=== PATIENT | female | born 1960 | race Caucasian/White ===

== ENCOUNTER → 2017-03-27 | Outpatient (CLI) | payer OTHER ==
--- NOTE | 2017-03-27 21:09 | Diagnostic Imaging Report ---
Bilateral screening mammogram 2D views with tomosynthesis. The current study was also evaluated with a Computer Aided Detection (CAD) system. INDICATION: Screening. No current complaints stated on the questionnaire. COMPARISON: 04/21/2015. FINDINGS: The breasts are composed of heterogeneously dense parenchyma which may decrease mammographic sensitivity. There is no mass, architectural distortion, or suspicious cluster of calcifications. Occasional punctate calcifications are seen. Allowing for technique and positional differences, no suspicious change is seen. IMPRESSION: Dense breasts with no definite change. ACR BI-RADS Category 2: Benign findings. Result letter will be mailed to the patient. Note: At least 10% of breast cancer is not imaged by mammography. Dictated by: Dictated on workstation # [id number]
== END ==
LOC: RAD 11:04
PROVIDERS: ATTEND Family Medicine
DX: Z12.31 Encounter for screening mammogram for malignant neoplasm of breast (principal)
CPT/HCPCS: 77067

== ENCOUNTER 2017-06-14 11:24 | Outpatient (CLI) | payer OTHER ==
[~2017-06-14] VITALS: Ht 160 cm; Wt 53.5 kg
== END 2017-06-14 12:06 ==
LOC: PREOP 11:24
PROVIDERS: ATTEND Internal Medicine
DX: Z01.818 Encounter for other preprocedural examination (principal); Z12.11 Encounter for screening for malignant neoplasm of colon

== ENCOUNTER 2017-06-15 08:02 | Day surgery (SDC) | payer OTHER ==
[2017-06-15 08:15] VITALS: BP 123/82
[2017-06-15] MEDS ORDERED: 1/2 NS IV SOLUTION 1,000 ML IV PRN (08:15)
[2017-06-15] MEDS ORDERED: LIDOCAINE JELLY 2% (XYLOCAINE) 5 ML TUBE MM PRN (08:15)
[2017-06-15] MEDS ORDERED: 1/2 NS IV SOLUTION 1,000 ML IV ONE (08:28)
--- NOTE | 2017-06-15 08:33 | Pre-Op Note & Conscious Sedat ---
Pre-Operative Progress Note H&P Reviewed The H&P was reviewed, patient examined and no changes noted. Date H&P Reviewed: Jun 15, 2017 Time H&P Reviewed: 08:32 Conscious Sedation Pre-Proced ASA Class: 1 Airway Mallampati Classification: (venetie appropriate class) I. II. III, IV Lungs Heart ASA score ASA 1: a normal healthy patient ASA 2: a patient with a mild systemic disease (mid diabetes, controlled hypertension, obesity ASA 3: a patient with a severe systemic disease that limits activity (angina , COPD, prior Myocardial infarction) ASA 4: a patient with an incapacitating disease that is a constant threat to life (CHF, renal failure) ASA 5: a moribund patient not expected to survive 24 hrs. (ruptured aneurysm) ASA 6: a declared brain patient whose organs are being harvested. For emergent operations, add the letter E after the classification Grade 2 Sedation Plan: Analgesia, Amnesia, Plan communicated to team members, Discussed options with patient/fam, Discussed risks with patient/fam Note The patient is an appropriate candidate to undergo the planned procedure, sedation, and anesthesia. The patient immediately re-assessed prior to indication. DAVON RICHARDS MD Jun 15, 2017 08:33
[2017-06-15] MEDS ORDERED: fentaNYL INJECTION 100 MCG/2 ML AMP ONE (09:12)
[2017-06-15] MEDS ORDERED: MIDAZOLAM 2 MG/2 ML (VERSED) VIAL ONE ×3 (09:12→09:28)
[2017-06-15] MEDS ORDERED: LIDOCAINE JELLY 2% (XYLOCAINE) 5 ML TUBE ONE (09:12)
--- NOTE | 2017-06-15 09:19 | History & Physical-Hospitalist ---
HPI History of Present Illness: HPI/Chief Complaint Mrs. Ruby is a 56-year-old white female refered by Dr. Wilde for screening colonoscopy. She is deemed to be of average risk as she is not aware of any family history of colon cancer or polyps. She had an episode of bright red bblood 10 years ago and underwent diagnostic colonoscopy reporting no evidence for neoplasia. Date Seen 06/15/17 Time Seen by Provider: 09:00 Attending Physician Alban Richards MD PCP Cristin Wilde DO Referring Physician Date of Admission Home Medications & Allergies Home Medications Reviewed patient Home Medication Reconciliation Form Allergies Allergies Coded Allergies No Known Drug Allergies (Unverified06/14/17) Past Wiudrwd-Phmtcl-Rrbfnh Hx Patient Social History Alcohol Use: Occasionally Uses Recreational Drug Use: No Smoking Status: Never a Smoker Recent Foreign Travel: No Contact w/other who traveled: No Recent Hopitalizations: No Recent Infectious Disease Expo: No Immunizations Up To Date Date of Influenza Vaccine: Apr 11, 2017 Seasonal Allergies Seasonal Allergies: No Cancer Skin Review of Systems Constitutional: no symptoms reported Cardiovascular: no symptoms reported, see HPI, No chest pain, No edema, No Hx of Intervention, No palpitations, No syncope, No vascular heart diseas Gastrointestinal: No RUQ, No LUQ, No RLQ, No LLQ, no symptoms reported, see HPI , No abdominal pain, No constipation, No diarrhea, No dysphagia, No hematemesis , No heartburn, No jaundice, No loss of appetite, No melena, No nausea, No vomiting Physical Exam Physical Exam Vital Signs Vital Sign - Last 12Hours 06/15/17 08:15 Temp 97.5 Pulse 79 Resp 18 B/P (MAP) 123/82 (96) Pulse Ox 95 O2 Delivery Room Air Capillary Refill : General Appearance: No Apparent Distress, WD/WN Respiratory: Chest Non Tender, Lungs Clear, Normal Breath Sounds, No Accessory Muscle Use, No Respiratory Distress Cardiovascular: Regular Rate, Rhythm, No Edema, No Gallop, No JVD, No Murmur, Normal Peripheral Pulses Gastrointestinal: Normal Bowel Sounds, No Organomegaly, No Pulsatile Mass, Non Tender, Soft Rectal: Deferred Extremity: Normal Inspection, Normal Range of Motion, Non Tender, No Calf Tenderness, No Pedal Edema Assessment/Plan Admission Diagnosis 1. Patient set up for screening colonoscopy on 15 June. Prep instructions given. Electronic medical record review 45 minutes of my direct care time was spent with another 15 minutes of staff time. ALBAN RICHARDS MD Jun 15, 2017 09:19
[2017-06-15] MEDS: fentaNYL INJECTION 100 MCG/2 ML AMP IVP PRN ×2 (09:21→09:24)
[2017-06-15] MEDS: MIDAZOLAM 2 MG/2 ML (VERSED) VIAL IVP PRN ×2 (09:22→09:28)
[2017-06-15 10:10] VITALS: BP 110/63
[2017-06-15 10:30] VITALS: BP 89/75
--- NOTE | 2017-06-15 13:25 | OPERATIVE REPORT ---
DATE OF SERVICE: COLONOSCOPY SUMMARY REFERRING PHYSICIAN Cristin Wilde D.O. INDICATION FOR THE PROCEDURE: Screening colonoscopy. The patient was placed in the left lateral decubitus position. Prior to undergoing colonoscopy digital rectal evaluation was performed. Anal sphincter tone was normal and the perianal reflexes intact. No abnormalities, no additional visual inspection of anal canal or distal rectal vault. The colonoscope was then inserted into the rectum and under direct visualization advanced to the cecum. The cecum was identified by identification of the ileocecal valve cecal strap. Photographic documentation was obtained. Careful inspection was made as the colonoscope was withdrawn. FINDINGS: There was no evidence for internal or external hemorrhoids and the rectum was unremarkable. Mild diverticular disease confined to the sigmoid colon was present without evidence for diverticulitis. One diminutive hyperplastic-appearing polyp was noted at 30 cm from the anal verge in the mid sigmoid colon. It was biopsied and ablated and submitted for histopathology with no blood loss. The descending colon, splenic flexure, transverse colon, hepatic flexure, ascending colon and cecum were unremarkable. ASSESSMENT: 1. Mild diverticular disease confined to the sigmoid colon was present. 2. One diminutive hyperplastic-appearing polyp was removed from the mid sigmoid colon 25 cm from the anal verge via hot forceps. As long as there are no surprises on histopathology report would advocate consideration for repeat screening colonoscopy in 10 years. I thank you for the referral of this pleasant lady. Job ID: [id number] DocumentID: [id number] Dictated Date: 06/15/2017 09:54:04 Director Report Date: 06/15/2017 13:25:15 Dictated By: DAVON RICHARDS MD MTDD
--- OUTSIDE RECORDS SUMMARY | 2017-06-16 00:13 | XMS REPORT | Continuity of Care Document ---
Demographics Preferred Language Unknown Marital Status Unknown Baptism Affiliation Unknown Race Unknown Ethnic Group Unknown Author Author [facility] Address Unknown Phone Unavailable Allergies There is no data. Medications There is no data. Problems Date Dx Coded Attending Type Code Diagnosis Diagnosed By 11/22/2012 V06.1 TDAP DX 05/27/2014 ROSA MACKEY DO S Ot V76.12 06/16/2014 GORDON MACKEY DOLINE S Ot V76.12 06/16/2014 Ot 611.89 06/16/2014 Ot V76.12 06/16/2014 Ot 793.82 06/16/2014 Ot V76.12 06/16/2014 Ot 793.82 06/16/2014 Ot V76.12 06/16/2014 Ot 793.89 06/16/2014 GORDON MACKEY DOLINE S Ot V76.12 11/12/2014 Ot 611.89 11/12/2014 Ot V76.12 11/12/2014 Ot 793.82 11/12/2014 Ot V76.12 11/12/2014 Ot 793.82 11/12/2014 Ot V76.12 11/12/2014 Ot 793.89 11/12/2014 CINDY MACKEY DOQUELINE S Ot V76.12 05/03/2015 CINDY MACKEY DOQUELINE S Ot Z12.31 05/03/2015 CINDY MACKEY DOQUELINE S Ot Z12.31 05/20/2015 CINDY MACKEY DOQUELINE S Ot Z12.31 03/22/2017 CINDY MACKEY DOQUELINE S Ot Z12.31 ENCNTR SCREEN MAMMOGRAM FOR MALIGNANT NE 04/02/2017 CINDY MACKEY DOQUELINE S Ot Z12.31 ENCNTR SCREEN MAMMOGRAM FOR MALIGNANT NE 04/02/2017 MOONNDJUAN LUIS RAY, ROSA S Ot Z12.31 ENCNTR SCREEN MAMMOGRAM FOR MALIGNANT NE 04/19/2017 GORDON MACKEY DOLINE S Ot Z12.31 ENCNTR SCREEN MAMMOGRAM FOR MALIGNANT NE Procedures There is no data. Results There is no data. Encounters ACCT No. Visit Date/Time Discharge Status Pt. Type Provider Facility Loc./Unit Complaint [id number] 11/22/2012 09:10:00 Document Registration [id number] 03/27/2017 11:04:00 03/27/2017 23:59:59 CLS Outpatient MARJORIEER DOGORDONROSA S [facility] RAD 3-D SCREENING [id number] 04/21/2015 10:10:00 04/21/2015 23:59:59 CLS Outpatient MARJORIEER DOCINDYROSA S [facility] RAD SCREENING [id number] 05/20/2014 09:07:00 05/20/2014 23:59:59 CLS Outpatient MARJORIEER DOCINDYROSA S [facility] RAD [id number] 07/08/2012 08:20:00 Document Registration [id number] 06/06/2012 10:04:00 Document Registration [id number] 06/01/2011 13:23:00 Document Registration [id number] 05/20/2010 10:05:00 Document Registration [id number] 11/22/2009 14:21:00 Document Registration
== END 2017-06-15 10:48 | disposition home or self-care (01) ==
LOC: ENDO 08:02
PROVIDERS: ATTEND Internal Medicine
DX: Z12.11 Encounter for screening for malignant neoplasm of colon (principal); K63.5 Polyp of colon; K57.30 Diverticulosis of large intestine without perforation or abscess without bleeding

== ENCOUNTER → 2018-04-30 | Outpatient (CLI) | payer BC, OTHER ==
--- NOTE | 2018-05-01 20:59 | Diagnostic Imaging Report ---
INDICATION: Screening. EXAMINATION: Digital mammogram bilateral screening with 3-D tomosynthesis. The current study was also evaluated with a Computer Aided Detection (CAD) system. This study was compared to the prior exams of 03/27/2017, 04/21/2015, and 05/20/2014. At this time, there are no current complaints. FINDINGS: The fibroglandular tissue in both breasts is dense. This does limit the sensitivity of this exam. Overall, there does not appear to have been any significant change when compared to the prior study. No primary or secondary sign of malignancy is noted. The 3D tomographic views also fail to show any evidence of malignancy. IMPRESSION: There is no radiographic evidence for malignancy. ACR BI-RADS Category 1: Negative. Result letter will be mailed to the patient. Note: At least 10% of breast cancer is not imaged by mammography. Dictated on workstation # [id number]
== END ==
LOC: RAD 09:13
PROVIDERS: ATTEND Family Medicine
DX: Z12.31 Encounter for screening mammogram for malignant neoplasm of breast (principal)
CPT/HCPCS: 77067

== ENCOUNTER → 2019-05-13 | Outpatient (CLI) | payer BC ==
--- NOTE | 2019-05-13 17:20 | Diagnostic Imaging Report ---
INDICATION: Routine screening. COMPARISON is made with prior mammograms from 04/30/2018 and 03/27/2017. TECHNIQUE: 2-D and 3-D bilateral screening mammography was performed with CAD. FINDINGS: Both breasts remain heterogeneously dense, limiting the sensitivity of mammography. The parenchymal pattern is stable. No mass or malignant appearing microcalcifications are seen. Occasional benign-appearing calcification are noted. Axillae are unremarkable. IMPRESSION: BI-RADS Category 2 No mammographic features suspicious for malignancy are identified. ACR BI-RADS Category 2: Benign findings. Result letter will be mailed to the patient. Note: At least 10% of breast cancer is not imaged by mammography. Dictated by: Dictated on workstation # [id number]
== END ==
LOC: RAD 15:34
PROVIDERS: ATTEND Family Medicine
DX: Z12.31 Encounter for screening mammogram for malignant neoplasm of breast (principal)
CPT/HCPCS: 77067

== ENCOUNTER 2020-05-03 10:30 | Outpatient (RCR) | payer BC, OTHER | END 2020-08-01 | disposition home or self-care (01) | LOC: CARD 10:30 | PROVIDERS: ATTEND Family Medicine | DX: R00.2 Palpitations (principal) | CPT/HCPCS: 93225; 93226 ==

== ENCOUNTER → 2020-06-23 | Outpatient (CLI) | payer OTHER ==
[2020-06-23 15:30] VITALS: BP 191/95
--- NOTE | 2020-06-23 15:30 | Cardiology Stress Test Report ---
Stress Test Report Date of Procedure/Referring: Date of Procedure: Jun 23, 2020 PCP Cristin Wilde DO Admitting Physician Cristin Wilde DO Indications: Arrhythmia Baseline Heart Rate: 79 Baseline Blood Pressure: Blood Pressure Systolic: 191 Blood Pressure Diastolic: 95 Baseline EKG: Baseline EKG: normal sinus rhythm Summary/Conclusion: Summary: In summary, the patient started exercising with a baseline heart rate, blood pressure and EKG mentioned above Patient was able to exercise for a total of 6:45minutes on Cody protocol, METs 8.1 Maximum heart rate 155 Maximum blood pressure 193/93 Stress EKG, Minimal nondiagnostic changes Recovery EKG , Return to baseline Conclusion: 1. Good exercise tolerance for a total of 6:45 minutes on Cody protocol, 8.1 METs, achieving 95 percent of maximum expected heart rate 2. Minimal nondiagnostic EKG changes with exercise returned to baseline during recovery 3. No arrhythmia was noted 4. Baseline hypertension persisted during test REHAN HEART MD Jun 23, 2020 15:30
== END ==
LOC: CARD 13:30
PROVIDERS: ATTEND Family Medicine
DX: I49.9 Cardiac arrhythmia, unspecified (principal)
CPT/HCPCS: 93017; 93306

== ENCOUNTER → 2020-12-24 | Outpatient (CLI) | payer OTHER ==
--- NOTE | 2020-12-24 11:37 | Diagnostic Imaging Report ---
Indication: Routine screening. Comparison is made with prior mammogram 05/13/2019 and 04/30/2018. 2-D and 3-D bilateral screening mammography was performed with CAD. Both breasts are heterogeneously dense, limiting the sensitivity of mammography. There is a density in the outer aspect of the right breast at mid depth, best seen on tomographic image 11 on the CC views. This may be just below the nipple line on the MLO view. Additional views are recommended. Left breast is unremarkable. No malignant appearing microcalcifications are seen. Axillae are unremarkable. IMPRESSION: BI-RADS 0 Right breast density. Additional views are recommended for further evaluation. ACR BI-RADS Category 0: Incomplete. (Needs additional imaging evaluation). Result letter will be mailed to the patient. Note: At least 10% of breast cancer is not imaged by mammography. Dictated by: Dictated on workstation # [id number]
== END ==
LOC: RAD 09:18
PROVIDERS: ATTEND Family Medicine
DX: Z12.31 Encounter for screening mammogram for malignant neoplasm of breast (principal)
CPT/HCPCS: 77063; 77067

== ENCOUNTER → 2020-12-29 | Outpatient (CLI) | payer OTHER ==
--- NOTE | 2020-12-29 15:44 | Diagnostic Imaging Report ---
INDICATION: Screening mammography showed a right breast density. Diagnostic views are limited by a dense parenchymal pattern, however, showed no appreciable mass owing to the parenchymal density and the appearance at the recent screening study, we did proceed with right breast ultrasound. Corresponding to the region of initial mammographic density, sonographic surveillance throughout that quadrant showed no solid or cystic mass, no ductal ectasia. No fluid collection. No suspicious finding. IMPRESSION: Normal negative right diagnostic mammogram and targeted right breast ultrasound. Prior density owing to superimposition. No further workup needed. BI-RADS Category 1 ACR BI-RADS Category 1: Negative. Result letter will be mailed to the patient. Note: At least 10% of breast cancer is not imaged by mammography. Dictated by: Dictated on workstation # [id number]
--- NOTE | 2020-12-29 15:49 | Diagnostic Imaging Report ---
INDICATION: Screening views dated 12/24 showed a right breast density just lateral to the nipple in the mid depth. The patient returns for diagnostic views. Unilateral right digital diagnostic mammogram with CAD performed with 2-D and 3-D views performed in the mL, CC and MLO orientation with and without spot compression. With spot compression, there is dispersal of heterogeneously dense fibroglandular elements. A 90 degree mediolateral view was performed and was normal. We note sensitivity limitations owing to a heterogeneously dense parenchymal pattern. Therefore, we did proceed with targeted right breast ultrasound despite negative diagnostic views. That exam was performed concurrently and dictated separately, that was also normal. IMPRESSION: Negative unilateral right diagnostic mammography and targeted right breast ultrasound. Resolution of prior density felt to have reflected superimposition. No suspicious finding. This patient can be returned to routine bilateral screening, next due in one year's time. BI-RADS Category 1 ACR BI-RADS Category 1: Negative. Result letter will be mailed to the patient. Note: At least 10% of breast cancer is not imaged by mammography. Dictated by: Dictated on workstation # [id number]
== END ==
LOC: RAD 14:15
PROVIDERS: ATTEND Family Medicine
DX: R92.2 Inconclusive mammogram (principal)
CPT/HCPCS: 76642; 77065; G0279

== ENCOUNTER → 2021-12-30 | Outpatient (CLI) | payer OTHER ==
--- NOTE | 2021-12-30 12:46 | Diagnostic Imaging Report ---
Indication: Routine screening. Comparison is made with prior mammograms 12/24/2020 and 05/13/2019. 2-D and 3-D bilateral screening mammography was performed with CAD. Both breasts are heterogeneously dense, limiting the sensitivity of mammography. The parenchymal pattern is stable. No mass or malignant-appearing microcalcifications are seen. Axillae are unremarkable. IMPRESSION: BI-RADS Category 1. No mammographic features suspicious for malignancy are identified. ACR BI-RADS Category 1: Negative. Result letter will be mailed to the patient. Note: At least 10% of breast cancer is not imaged by mammography. Dictated by: Dictated on workstation # [id number]
== END ==
LOC: RAD 10:00
PROVIDERS: ATTEND Family Medicine
DX: Z12.31 Encounter for screening mammogram for malignant neoplasm of breast (principal)
CPT/HCPCS: 77063; 77067

== ENCOUNTER → 2023-01-02 | Outpatient (CLI) | payer OTHER ==
--- NOTE | 2023-01-02 14:10 | Diagnostic Imaging Report ---
3-D bilateral screening mammogram with CAD. The current study was also evaluated with a Computer Aided Detection (CAD) system. This study was compared to the prior exams of 12/30/2021, 12/24/2020 and 05/13/2019. At this time there are no current complaints. The current study was also evaluated with a Computer Aided Detection (CAD) system. FINDINGS: The fibroglandular tissue in both breasts is heterogeneously dense. This does limit the sensitivity of this exam. Overall, there does not appear to have been any significant change when compared to the prior study. No primary or secondary sign of malignancy is noted. IMPRESSION: There is no radiographic evidence for malignancy. ACR BI-RADS Category 1: Negative. Result letter will be mailed to the patient. Note: At least 10% of breast cancer is not imaged by mammography. Dictated by: Dictated on workstation # [id number]
== END ==
LOC: RAD 09:49
PROVIDERS: ATTEND Family Medicine
DX: Z12.31 Encounter for screening mammogram for malignant neoplasm of breast (principal)
CPT/HCPCS: 77063; 77067